=== PATIENT | male | born 1935 | race Caucasian/White ===

== ENCOUNTER 2016-09-23 11:30 | Emergency (ER) | payer MEDICARE, OTHER ==
[2016-09-23 11:46] VITALS: BP 151/80
--- NOTE | 2016-09-23 13:03 | XRAY Preliminary Report ---
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 No evidence of a displaced fracture. [facility] SITE ID: [id number]
--- NOTE | 2016-09-23 13:06 | XRAY Report ---
EXAM: RIGHT SECOND DIGIT RADIOGRAPHY EXAM DATE: 09/23/2016 12:44 PM. CLINICAL HISTORY: Fall with index fingers injury both sides. COMPARISON: None. TECHNIQUE: 3 views. FINDINGS: Joint space narrowing and osteophyte formation is seen involving the proximal and distal interphalang eal joints of both second fingers. No displaced fracture is identified. Severe joint space narrowing osteophyte formation and subchondral sclerosis is seen involving the first carpal metacarpal joint bi laterally. No radiopaque foreign body is seen. 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 No evidence of a displaced fracture. [facility] Referring Provider Line: [phone] SITE ID: [id number]
--- NOTE | 2016-09-23 13:09 | XRAY Preliminary Report ---
Exam: XR Knee 4 View RT Impression: Mild osteoarthritis of the right knee. Atherosclerosis of the popliteal artery. [facility] SITE ID: [id number]
--- NOTE | 2016-09-23 13:11 | XRAY Report ---
EXAM: RIGHT KNEE RADIOGRAPHY EXAM DATE: 09/23/2016 12:44 PM. CLINICAL HISTORY: Fall with patellar injury. COMPARISON: None. TECHNIQUE: 4 views. FINDINGS: Osteophytes are noted in the patellofemoral compartment. There is no significant joint space narrowin g. No displaced fracture is identified. There is atherosclerosis of the popliteal artery. Impression: Mild osteoarthritis of the right knee. Atherosclerosis of the popliteal artery. [facility] Referring Provider Line: [phone] SITE ID: [id number]
--- NOTE | 2016-09-23 13:16 | ED Physician Documentation ---
PD HPI Fall - Stated complaint Stated Complaint: KNEE/HAND PX - Chief complaint Chief Complaint: Ext Problem - History obtained from History obtained from: Patient - History of Present Illness Mechanism of injury: Slipped (he was pushing a cart with gear down a small ramp than was inclined. It rolled too fast and it pulled him over as he tried to stop it. He landed onto his knee with pain and swelling there, some bruising today. Both index fingers hurt with some twisting as he was holding the handle of the cart.) Fall distance: Standing position Where injury occurred: Other (boat dock) Timing - onset: Yesterday Injury(ies) location: Right Upper Extremity, Left Uppper Extremity (both index fingers at base), Right Lower Extremity (right knee anteriorly with bruising and more swelling today.) Review of Systems Cardiac: denies: Chest pain / pressure GI: denies: Abdominal Pain Skin: denies: Abrasion (s), Laceration (s) Neurologic: denies: Focal weakness, Numbness, Headache, Head injury PD PAST MEDICAL HISTORY - Past Medical History Past Medical History: Yes Cardiovascular: Hypertension, High cholesterol Derm: Other Other Past Medical History: skin cancer in the top of his head - Past Surgical History Past Surgical History: Yes General: Colonoscopy HEENT: Tonsil/Adenoidectomy - Present Medications Home Medications: Ambulatory Orders Medication Instructions Recorded Confirmed Allopurinol [Aloprim] 20 mg PO DAILY 09/23/16 09/23/16 Aspirin [Aspirin EC] 20 mg PO DAILY 09/23/16 09/23/16 Benazepril/Hydrochlorothiazide 20 mg PO DAILY 09/23/16 09/23/16 [Benazepril-Hctz 20-25 mg Tab] Cholesterol Med 1 tab PO DAILY 09/23/16 - Allergies Allergies/Adverse Reactions: Allergies Allergy/AdvReac Type Severity Reaction Status Date / Time grass pollen Allergy Respiratory Verified 09/23/16 11:56 - Social History Does the pt smoke?: No Smoking Status: Never smoker Does the pt drink ETOH?: No Does the pt have substance abuse?: No - Immunizations Immunizations are current?: Yes - POLST Patient has POLST: No PD ED PE NORMAL - Vitals Vital signs reviewed: Yes - General General: Alert and oriented X 3, Well developed/nourished - HEENT HEENT: Atraumatic - Neck Neck: Supple, no meningeal sign, No bony TTP - Cardiac Cardiac: RRR, No murmur - Respiratory Respiratory: Clear bilaterally - Abdomen Abdomen: Soft, Non tender - Derm Derm: Normal color, Warm and dry - Extremities Extremities: Other (both index fingers with tenderness at MTP joint areas. No obvious deformity except mild swelling. Normal sensation and cap refill, movement. Right knee with tenderness anteriorly. Ligament testing without obvious pain nor laxity. ) Results - Vitals Vitals: Vital Signs - 24 hr 09/23/16 09/23/16 11:35 11:46 Temperature 36.6 C Heart Rate 84 Respiratory 18 Rate Blood Pressure 151/80 H O2 Saturation 98 Oxygen O2 Source Room air - Rads (name of study) right knee Radiology: Prelim report reviewed, EMP read contemporaneously (no fractures) bilateral index fingers Radiology: Prelim report reviewed, EMP read contemporaneously (no fractures) PD MEDICAL DECISION MAKING - ED course Complexity details: reviewed results, considered differential, d/w patient Departure - Departure Disposition: 01 Home, Self Care Clinical Impression: Fall from slip, trip, or stumble Qualifiers: Encounter type: initial encounter Qualified Code(s): W01.0XXA - Fall on same level from slipping, tripping and stumbling without subsequent striking against object, initial encounter Knee contusion Qualifiers: Encounter type: initial encounter Laterality: right Qualified Code(s): S80.01XA - Contusion of right knee, initial encounter Sprain of index finger Qualifiers: Encounter type: initial encounter Sprain of finger site: metacarpophalangeal joint Laterality: unspecified laterality Qualified Code(s): S63.658A - Sprain of metacarpophalangeal joint of other finger, initial encounter Condition: Stable Record reviewed to determine appropriate education?: Yes Instructions: ED Sprain Finger Comments: No fractures on xrays. For the knee contusion and fingers sprain, do activity as able and take tylenol or ibuprofen as needed for pains. These should improve over the next week or so. Discharge Date/Time: 09/23/16 13:20
== END 2016-09-23 13:20 | disposition home or self-care (01) ==
LOC: ED 11:30
DX: S80.01XA Contusion of right knee, initial encounter (principal); W01.0XXA Fall on same level from slipping, tripping and stumbling without subsequent striking against object, initial encounter; Y92.814 Boat as the place of occurrence of the external cause; S63.658A Sprain of metacarpophalangeal joint of other finger, initial encounter; I10 Essential (primary) hypertension; E78.00 Pure hypercholesterolemia, unspecified; Z85.828 Personal history of other malignant neoplasm of skin; Z79.82 Long term (current) use of aspirin
CPT/HCPCS: 73140; 99283; 99284

== ENCOUNTER 2018-07-09 10:06 | Emergency (ER) | payer MEDICARE ==
[2018-07-09 10:12] VITALS: BP 172/70
[2018-07-09] MEDS ORDERED: TETANUS/DIPHTHERIA/PERTUSSIS 0.5 ML SYRINGE IM ONE (10:22)
[2018-07-09] MEDS ORDERED: CLINDAMYCIN 150 MG CAPSULE PO STA (10:28)
[2018-07-09] MEDS ORDERED: BACITRACIN OINT TOP STA (10:28)
--- NOTE | 2018-07-09 10:30 | ED Physician Documentation ---
History of Present Illness - Stated complaint Stated Complaint: SWOLLEN NOSE/SORE - Chief complaint Chief Complaint: Wound - History obtained from History obtained from: Patient - History of Present Illness Timing: How many days ago (4) Pain level max: 0 Pain level now: 0 - Additonal information Additional information: Patient with redness and swelling to the tip of his nose as well as the left nare. States that when he squeezes a small amount of pus comes out. No known injury. No known foreign bodies. 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 Does not know his last tetanus shot. No fevers. Nothing makes it better or worse. Review of Systems Constitutional: denies: Fever GI: denies: Vomiting PD PAST MEDICAL HISTORY - Past Medical History Cardiovascular: Hypertension, High cholesterol Derm: Other - Past Surgical History Past Surgical History: Yes General: Colonoscopy HEENT: Tonsil/Adenoidectomy - Present Medications Home Medications: Ambulatory Orders Medication Instructions Recorded Confirmed Allopurinol [Aloprim] 20 mg PO DAILY 09/23/16 09/23/16 Aspirin [Aspirin EC] 20 mg PO DAILY 09/23/16 09/23/16 Benazepril/Hydrochlorothiazide 20 mg PO DAILY 09/23/16 09/23/16 [Benazepril-Hctz 20-25 mg Tab] Cholesterol Med 1 tab PO DAILY 09/23/16 Clindamycin HCl [Clindamycin 300MG 300 mg PO Q6H #28 capsule 07/09/18 CAP] - Allergies Allergies/Adverse Reactions: Allergies Allergy/AdvReac Type Severity Reaction Status Date / Time grass pollen Allergy Respiratory Verified 09/23/16 11:56 - Social History Does the pt smoke?: No Smoking Status: Never smoker Does the pt drink ETOH?: No Does the pt have substance abuse?: No - Immunizations Immunizations are current?: Yes - POLST Patient has POLST: No PD ED PE NORMAL - Vitals Vital signs reviewed: Yes - General General: Alert and oriented X 3, No acute distress - HEENT HEENT: Moist mucous membranes - Derm Derm: Warm and dry, Other (Distal nose is mildly erythematous and swollen. With significant pressure there is a small amount of pus that is removed. There is no facial swelling. No orbital swelling. Extraocular movements intact.) - Neuro Neuro: Alert and oriented X 3 Results - Vitals Vitals: Vital Signs - 24 hr 07/09/18 10:09 Temperature 36.7 C Heart Rate 70 Respiratory 18 Rate Blood Pressure 172/70 H O2 Saturation 97 Oxygen O2 Source Room air PD MEDICAL DECISION MAKING - ED course Complexity details: considered differential, d/w patient ED course: Patient with a mild cellulitis to the distal aspect of the nose with likely small abscess. Mupirocin was placed as well as oral clindamycin. Tetanus shot also given. No palpable foreign bodies. Will trial on antibiotics and follow- up with his doctor. Patient counseled regarding signs and symptoms for which I believe and urgent re-evaluation would be necessary. Patient with good understanding of and agreement to plan and is comfortable going home at this time This document was made in part using voice recognition software. While efforts are made to proofread this document, sound alike and grammatical errors may occur. Departure - Departure Disposition: 01 Home, Self Care Clinical Impression: Cellulitis of nasal tip Condition: Good Instructions: ED Infec Skin Cellulitis Follow-Up: Your,doctor in 3 days for wound check [Other] Prescriptions: Clindamycin HCl [Clindamycin 300MG CAP] 300 mg PO Q6H #28 capsule Comments: Take all antibiotics until gone. Return if you worsen. Follow-up with your doctor for a recheck within 3 days.
== END 2018-07-09 10:36 | disposition home or self-care (01) ==
LOC: ED 10:06
DX: J34.0 Abscess, furuncle and carbuncle of nose (principal); I10 Essential (primary) hypertension; E78.00 Pure hypercholesterolemia, unspecified; Z79.82 Long term (current) use of aspirin; Z23 Encounter for immunization
CPT/HCPCS: 90471; 90715; 99283; A9270

== ENCOUNTER 2018-09-11 12:28 | Outpatient (CLI) | payer MEDICARE | END 2018-09-11 12:29 | disposition short-term general hospital (02) | LOC: EMS 12:28 | PROVIDERS: ATTEND Surgery | DX: R44.1 Visual hallucinations (principal); M25.552 Pain in left hip; R41.0 Disorientation, unspecified | CPT/HCPCS: A0425; A0429 ==